=== PATIENT | female | born 1960 | race Caucasian/White ===

== ENCOUNTER 2019-04-27 06:47 | Day surgery (SDC) | payer BC ==
[~2019-04-27 06:47] MED LIST: Sodium Chloride 0.9% 10 ML Syringe FLUSH PRN
[2019-04-27] MEDS ORDERED: Propofol 200 MG/20 ML SDV IV ONE (06:48)
[2019-04-27] MEDS ORDERED: Lidocaine 2% 100 MG/5 ML Syringe IVPUSH ONE (06:48)
[2019-04-27] MEDS: Lactated Ringers 1,000 ML IV SCH (07:28)
--- NOTE | 2019-04-27 08:08 | PCM.OPNOTE ---
- General Post-Op/Procedure Note Date of Surgery/Procedure: 04/27/19 Operative Procedure(s): c scope Findings: normal exam Pre Op Diagnosis: screening Post-Op Diagnosis: nl exam Anesthesia Technique: MAC Primary Surgeon: Min Adams Anesthesia Provider: Sabi Saleh ([facility] CRNAS) Complications: None Condition: Good Free Text/Narrative:: see dictation
--- NOTE | 2019-04-27 09:35 | OR ---
DATE OF OPERATION: 04/27/2019 SURGEON: Min Adams MD PROCEDURE PERFORMED: Colonoscopy. PREOPERATIVE DIAGNOSIS: Need for screening C scope. POSTOPERATIVE DIAGNOSIS: Normal exam. INDICATIONS FOR PROCEDURE: This is a 59-year-old white female who presents for screening colonoscopy. She was offered and accepted same. DESCRIPTION OF OPERATION: After an excellent IV sedation was administered, digital rectal exam was performed. No marked abnormality was noted. Flexible colonoscope was inserted and advanced to the cecum. Prep was excellent. The following findings were noted. Ascending colon, unremarkable. Transverse colon, unremarkable. Descending colon, unremarkable. Sigmoid and rectum, unremarkable. Colon was deflated. The scope was removed. The patient tolerated the procedure well and was taken to recovery. Repeat scope in 10 years. /[id number] TARYN/MATTIE
== END 2019-04-27 09:18 | disposition home or self-care (01) ==
LOC: FB.SDS 06:47
PROVIDERS: ATTEND Surgery
DX: Z12.11 Encounter for screening for malignant neoplasm of colon (principal); I10 Essential (primary) hypertension; E78.00 Pure hypercholesterolemia, unspecified; N28.1 Cyst of kidney, acquired; Z88.2 Allergy status to sulfonamides; Z88.1 Allergy status to other antibiotic agents; Z87.891 Personal history of nicotine dependence; Z80.0 Family history of malignant neoplasm of digestive organs; Z79.82 Long term (current) use of aspirin; Z79.899 Other long term (current) drug therapy
CPT/HCPCS: J2001; J2704; J7120

== ENCOUNTER 2019-05-12 21:18 | Emergency (ER) | payer BC ==
[2019-05-12] MEDS ORDERED: Lidocaine 2% 20 ML MDV INFILT ONE (21:19)
--- NOTE | 2019-05-12 21:55 | EDM.PDOC ---
ED HPI GENERAL MEDICAL PROBLEM - General Chief Complaint: Laceration Stated Complaint: CUT FINGER Time Seen by Provider: 05/12/19 21:52 Source of Information: Reports: Patient - History of Present Illness INITIAL COMMENTS - FREE TEXT/NARRATIVE: Accidental cut to the rt index. - Related Data Allergies Allergy/AdvReac Type Severity Reaction Status Date / Time cefprozil [From Cefzil] Allergy Hives Verified 04/26/19 11:23 Sulfa (Sulfonamide Allergy Hives Verified 04/26/19 11:23 Antibiotics) sulfacetamide Allergy Hives Verified 04/26/19 11:23 Home Meds: Home Meds Aspirin [Low Dose Aspirin EC] 81 mg PO DAILY 04/26/19 [History] Lisinopril/Hydrochlorothiazide [Lisinopril-Hctz 10-12.5 mg Tab] 1 each PO DAILY 04/26/19 [History] Rosuvastatin [Crestor] 10 mg PO DAILY 04/26/19 [History] Past Medical History HEENT History: Reports: None, Impaired Vision Cardiovascular History: Reports: High Cholesterol, Hypertension Respiratory History: Reports: None Gastrointestinal History: Reports: Cholelithiasis Genitourinary History: Reports: None 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 (See Below) Other MINILAB OPERATOR History: FIBROCYSTIC BREAST DISEASE Musculoskeletal History: Reports: None Neurological History: Reports: None Psychiatric History: Reports: None Endocrine/Metabolic History: Reports: None Hematologic History: Reports: None Immunologic History: Reports: None Oncologic (Cancer) History: Reports: None Dermatologic History: Reports: None - Infectious Disease History Infectious Disease History: Reports: Chicken Pox - Past Surgical History Head Surgeries/Procedures: Reports: None HEENT Surgical History: Reports: None GI Surgical History: Reports: Appendectomy, Cholecystectomy, Colonoscopy Female Surgical History: Reports: Breast Biopsy, Other (See Below) Other Female Surgeries/Procedures: HYSTEROSCOPY Musculoskeletal Surgical History: Reports: None Social & Family History - Family History GI: Reports: Other (See Below) Other GI Family History: MOTHER WITH COLON CA - Caffeine Use Caffeine Use: Reports: Coffee, Soda ED ROS GENERAL - Review of Systems Review Of Systems: ROS reveals no pertinent complaints other than HPI. ED EXAM, SKIN/RASH Exam: See Below Text/Narrative:: 2 cm superficial lac to the left index. Exam Limited By: No Limitations General Appearance: Alert, WD/WN ED SKIN PROCEDURES - Laceration/Wound Repair Left Digit - 2nd (Index) Lac/Wound length In cm: 2 Appearance: Superficial Distal NVT: Neuro & Vascular Intact Anesthetic Type: Local Local Anesthesia - Lidocaine (Xylocaine): 2% Plain Local Anesthetic Volume: 2cc Skin Prep: Chlorhexidine (Hibiciens) Suture Size: 4-0 Suture Type: Nylon Sterile Dressing Applied: Nurse Tetanus Status Addressed: Yes Departure - Departure Time of Disposition: 21:53 Disposition: Admitted As Inpatient 68 Condition: Good Clinical Impression: Laceration - Discharge Information Referrals: Ross Grant MD [Primary Care Provider] - - Problem List & Annotations (1) Laceration SNOMED Code(s): 744012681 Code(s): [id number] - Status: Acute Current Visit: Yes - Problem List Review Problem List Initiated/Reviewed/Updated: Yes - Assessment/Plan Plan: 2 sutures placed after local anesthesia. No complications
== END 2019-05-12 22:00 | disposition home or self-care (01) ==
LOC: FB.ED 21:18
DX: S61.211A Laceration without foreign body of left index finger without damage to nail, initial encounter (principal); I10 Essential (primary) hypertension; Z88.1 Allergy status to other antibiotic agents; Z88.2 Allergy status to sulfonamides; Z79.82 Long term (current) use of aspirin; Z79.899 Other long term (current) drug therapy; Z90.49 Acquired absence of other specified parts of digestive tract; W45.8XXA Other foreign body or object entering through skin, initial encounter
CPT/HCPCS: 12001; 99282; J2001; 12011